=== PATIENT | male | born 1980 | race Caucasian/White ===

== ENCOUNTER 2022-09-01 08:31 | Emergency (ER) | payer BC ==
[2022-09-01 09:22] LABS: STREP A BY PCR NOT DETECTED (NOT DETECT)
== END 2022-09-01 09:42 | disposition home or self-care (01) ==
LOC: KA.ED 08:31
DX: J02.9 Acute pharyngitis, unspecified (principal); Z88.5 Allergy status to narcotic agent
CPT/HCPCS: 87651-QW; 99283